=== PATIENT | female | born 1945 | race Asian ===

== ENCOUNTER 2016-11-14 15:28 | Outpatient (CLI) | payer OTHER | END 2016-11-14 15:34 | disposition short-term general hospital (02) | LOC: AMB 15:28 | DX: R55 Syncope and collapse (principal) | CPT/HCPCS: A0425; A0427 ==

== ENCOUNTER 2016-11-14 15:37 | Emergency (ER) | payer OTHER ==
[~2016-11-14] VITALS: Ht 180.3 cm; Wt 89.8 kg
[2016-11-14 16:12] LABS: PLATELET COUNT 392 K/uL (152-353)
[2016-11-14 16:22] LABS: POTASSIUM 4.3 mmol/L (3.6-5.2)
== END 2016-11-14 17:00 | disposition home or self-care (01) ==
LOC: ED 15:37
DX: R55 Syncope and collapse (principal)
CPT/HCPCS: 80053; 82550; 82553; 84484; 85027; 99283

== ENCOUNTER 2018-06-29 17:32 | Inpatient (IN) | payer OTHER ==
[2018-06-29] VITALS (8 sets, daily range): BP systolic 129–1447; BP diastolic 54–80; TEMP 97.3–98.1; Ht 180.3 cm; Wt 92.1 kg
[~2018-06-29] VITALS: Ht 180.3 cm; Wt 92.1 kg
[2018-06-29] MEDS ORDERED: ASPIR-LOW81 MG PO (17:43)
[2018-06-29] MEDS ORDERED: 904272561 PO (17:44)
[2018-06-29] MEDS ORDERED: ENALAPRIL20 MG PO (17:44)
[2018-06-29] MEDS ORDERED: LOPRESSOR100 MG PO (17:45)
[2018-06-29] MEDS ORDERED: CLON0.1T16 PO (17:45)
[2018-06-29] MEDS ORDERED: INSU100P SC (17:46)
[2018-06-29] MEDS ORDERED: CLOP75TA2 PO (18:19)
[2018-06-29 18:23] LABS: PLATELET COUNT 303 K/uL (152-353)
[2018-06-29 18:30] LABS: POTASSIUM 4.1 mmol/L (3.6-5.2); SODIUM 140 mmol/L (136-145)
[2018-06-30] VITALS (7 sets, daily range): BP systolic 134–181; BP diastolic 58–80; TEMP 97.5–99.1
[2018-07-01] VITALS: BP 143/57; TEMP 98.5
[2018-07-01 04:10] VITALS: BP 160/63; TEMP 98.5
[2018-07-01 05:52] LABS: PLATELET COUNT 257 K/uL (152-353)
[2018-07-01 06:17] LABS: POTASSIUM 4.1 mmol/L (3.6-5.2)
[2018-07-01 08:10] VITALS: BP 180/75; TEMP 98.3
[2018-07-01 12:10] VITALS: BP 181/75; BP 97/50; TEMP 98.2
[2018-07-01 16:00] VITALS: BP 100/55; BP 167/78; TEMP 98.3; TEMP 99.1
[2018-07-01 20:00] VITALS: BP 167/84; TEMP 97.6
[2018-07-02] VITALS: BP 161/63; TEMP 99.2
[2018-07-02 04:00] VITALS: BP 181/69; TEMP 98.2
[2018-07-02 08:00] VITALS: BP 161/64; TEMP 99.2
[2018-07-02] MEDS ORDERED: ROBITUSSIN DM SYRUP PO (11:09)
[2018-07-02] MEDS ORDERED: AZIT250T3 PO (11:09)
[2018-07-02] MEDS ORDERED: OSEL75CA PO (11:09)
[2018-07-02] MEDS ORDERED: GUAI600T70 PO (11:25)
== END 2018-07-02 13:00 | disposition home or self-care (01) | DRG 194 ==
LOC: ED 17:32 → MED/SURG 21:30
PROVIDERS: ADMIT Family Medicine
DX: J09.X2 Influenza due to identified novel influenza A virus with other respiratory manifestations (principal); I69.354 Hemiplegia and hemiparesis following cerebral infarction affecting left non-dominant side; R07.89 Other chest pain; R07.81 Pleurodynia; M62.81 Muscle weakness (generalized); E78.49 Other hyperlipidemia; R55 Syncope and collapse; E11.9 Type 2 diabetes mellitus without complications; Z95.1 Presence of aortocoronary bypass graft; I25.2 Old myocardial infarction
CPT/HCPCS: 36415; 36591; 80053; 82550; 82553; 82948; 84484; 85027; 93005; 96360; 96365; 96366; 96372; 99284; J3490

== ENCOUNTER 2019-09-15 17:36 | Emergency (ER) | payer OTHER ==
[~2019-09-15] VITALS: Ht 180.3 cm; Wt 97.5 kg
[~2019-09-15 17:36] MED LIST: 904272561 PO; ASPIR-LOW81 MG PO; AZIT250T3 PO; CLON0.1T16 PO; CLOP75TA2 PO; ENALAPRIL20 MG PO; GUAI600T70 PO; INSU100P SC; LOPRESSOR100 MG PO; OSEL75CA PO; ROBITUSSIN DM SYRUP PO
[2019-09-15 17:37] VITALS: TEMP 98.1
[2019-09-15 18:13] LABS: PLATELET COUNT 381 K/uL (152-353)
[2019-09-15 18:29] LABS: POTASSIUM 3.8 mmol/L (3.6-5.2)
[2019-09-15 20:31] VITALS: BP 142/80
== END 2019-09-15 20:34 | disposition home or self-care (01) ==
LOC: ED 17:36
PROVIDERS: Family Medicine
DX: E11.649 Type 2 diabetes mellitus with hypoglycemia without coma (principal); Z79.4 Long term (current) use of insulin
CPT/HCPCS: 80053; 81000; 85027; 99283

== ENCOUNTER 2020-03-23 21:36 | Observation (INO) | payer OTHER ==
[~2020-03-23] VITALS: Ht 180.3 cm; Wt 102.1 kg
[2020-03-23 21:36] VITALS: BP 180/91; TEMP 97.8
[2020-03-23 21:58] LABS: PLATELET COUNT 493 K/uL (152-353)
[2020-03-24 01:23] VITALS: BP 180/87; TEMP 98.1; Ht 180.3 cm; Wt 102.1 kg
[2020-03-24] MEDS ORDERED: AMLODIPINE BESYLATE PO (02:19)
[2020-03-24 04:00] VITALS: BP 164/62; TEMP 98.7
[2020-03-24 05:48] LABS: PLATELET COUNT 375 K/uL (152-353)
[2020-03-24 05:56] LABS: POTASSIUM 3.8 mmol/L (3.6-5.2)
[2020-03-24 08:00] VITALS: BP 168/74; TEMP 98.6
[2020-03-24 12:00] VITALS: BP 146/78; TEMP 98.2
[2020-03-24 16:00] VITALS: BP 133/64; TEMP 99.2
[2020-03-24] MEDS ORDERED: TRESIBA FL100 UNIT/M SC (17:32)
[2020-03-24] MEDS ORDERED: CLOP75TA2 PO (17:33)
[2020-03-24] MEDS ORDERED: LIPITOR40 MG PO (17:33)
[2020-03-24] MEDS ORDERED: ASA LOW DOSE81 MG PO (17:34)
[2020-03-24] MEDS ORDERED: INSU100P SC (17:36)
[2020-03-24 20:00] VITALS: BP 139/63; TEMP 98.1
[2020-03-25] VITALS: BP 140/64; TEMP 97.5
[2020-03-25 04:00] VITALS: BP 121/50; TEMP 98.2
[2020-03-25 08:00] VITALS: BP 127/56; TEMP 98.2
[2020-03-25] MEDS ORDERED: INSUINJP SC (10:44)
== END 2020-03-25 12:50 | disposition home health service (06) ==
LOC: ED 21:36 → MED/SURG 03-24
PROVIDERS: Family Medicine; ADMIT Internal Medicine
DX: E87.2 Acidosis (principal); E11.649 Type 2 diabetes mellitus with hypoglycemia without coma; Z79.4 Long term (current) use of insulin; Z86.73 Personal history of transient ischemic attack (TIA), and cerebral infarction without residual deficits; E78.49 Other hyperlipidemia; M62.81 Muscle weakness (generalized); I25.2 Old myocardial infarction; I10 Essential (primary) hypertension
CPT/HCPCS: 36415; 80053; 81000; 82948; 82962; 83605; 85027; 87040; 96365; 96366; 96375; 99220; 99284; G0378; J0696; J2060

== ENCOUNTER 2021-10-26 09:43 | Emergency (ER) | payer OTHER ==
[~2021-10-26] VITALS: Ht 180.3 cm; Wt 102.1 kg
[~2021-10-26 09:43] MED LIST changes: +AMLODIPINE BESYLATE PO; +ASA LOW DOSE81 MG PO; +INSUINJP SC; +LIPITOR40 MG PO; +TRESIBA FL100 UNIT/M SC
[2021-10-26 11:16] LABS: PLATELET COUNT 361 K/uL (152-353)
[2021-10-26 11:24] LABS: POTASSIUM 5.1 mmol/L (3.6-5.2)
[2021-10-26 12:54] VITALS: BP 173/78; TEMP 97.3
== END 2021-10-26 13:05 | disposition home or self-care (01) ==
LOC: ED 09:43
PROVIDERS: Hospitalist
DX: M54.59 Other low back pain (principal); G89.29 Other chronic pain; R10.84 Generalized abdominal pain
CPT/HCPCS: 36415; 80053; 81000; 83690; 84484; 85027; 93005; 96360; 96374; 96375; 99284; J1885; J2270; J2405

== ENCOUNTER 2023-02-16 13:40 | Observation (INO) | payer OTHER ==
[~2023-02-16] VITALS: Ht 175.3 cm; Wt 88.0 kg
[2023-02-16 13:40] VITALS: BP 191/92; TEMP 98.1
[~2023-02-16 13:40] MED LIST changes: +AMLODIPINE PO; +BASAGLAR K100 UNIT/M SC; +COZAAR25 MG PO; +DONEPEZIL HYDROC5 MG PO; +METOPROLOL25 M1 PO; +NOVOLIN R100 UNIT/1 SC; +PIOG30TA PO; +SPIRONOLACT25 MG PO
[2023-02-16 14:12] LABS: PLATELET COUNT 309 K/uL (152-353)
[2023-02-16 14:25] LABS: POTASSIUM 3.8 mmol/L (3.6-5.2)
[2023-02-17] VITALS: BP 176/78; TEMP 98.1
[2023-02-17 03:57] VITALS: BP 162/70; TEMP 98.1
[2023-02-17 05:45] VITALS: BP 160/77; TEMP 98.3; Ht 175.3 cm; Wt 88.0 kg
[2023-02-17 07:50] VITALS: BP 160/76; TEMP 98.5
[2023-02-17 08:46] LABS: PLATELET COUNT 267 K/uL (152-353)
[2023-02-17 08:52] LABS: POTASSIUM 3.8 mmol/L (3.6-5.2)
[2023-02-17] MEDS ORDERED: FIASP100 UNIT/M SC (09:48)
[2023-02-17] MEDS ORDERED: FURO20TA67 PO (09:50)
[2023-02-17] MEDS ORDERED: KLOR-CON M1010 MEQ PO (09:51)
[2023-02-17 12:00] VITALS: BP 180/79; TEMP 98.3
== END 2023-02-17 15:44 | disposition home or self-care (01) ==
LOC: ED 13:40 → MED/SURG 15:33
PROVIDERS: Internal Medicine Endocrinology, Diabetes & Metabolism; ADMIT Family Medicine; ATTEND Internal Medicine
DX: N30.00 Acute cystitis without hematuria (principal); I10 Essential (primary) hypertension; E11.9 Type 2 diabetes mellitus without complications; I25.10 Atherosclerotic heart disease of native coronary artery without angina pectoris; Z86.73 Personal history of transient ischemic attack (TIA), and cerebral infarction without residual deficits; E78.49 Other hyperlipidemia; Z79.4 Long term (current) use of insulin; R41.0 Disorientation, unspecified; Z79.899 Other long term (current) drug therapy
CPT/HCPCS: 80048; 80053; 80307; 81000; 83605; 85027; 87040; 87088; 96361; 96365; 99221; 99284; G0378; J0696